=== PATIENT | male | born 1980 | race Caucasian/White ===

== ENCOUNTER 2017-10-10 13:40 | Emergency (ER) | payer BC ==
[2017-10-10 14:00] VITALS: BP 128/72; PULSE 50; TEMP 97.9; BMI 28.3
[2017-10-10] MEDS ORDERED: FLUORESCEIN NA 1 EA STRIP ONE (15:52)
--- NOTE | 2017-10-10 16:06 | PDOC ---
History of Present Illness - General Chief Complaint: Eye Problem Stated Complaint: EYE PROBLEM Time Seen by Provider: 10/10/17 15:43 History Source: Patient Exam Limitations: No Limitations - History of Present Illness Initial Comments: CHIEF COMPLAINT: 36 y/o afebrile male with PMH myopia c/o left eye irritation and pain after being hit in the eye with garbage. HISTORY OF PRESENT ILLNESS: The patient states that dust flew at his face today. He closed his eyes but something hit him in the left eye with it closed and he now has some pain in his left eye and blurry vision. He states he immediately started rubbing his left eye after the incident and now it's all red. He denies itching or burning to left eye. He does wear glasses but doesn' t have them with him so he admits his vision in both eyes is currently blurry. Vital signs on arrival are within normal limits. REVIEW OF SYSTEMS: GENERAL/CONSTITUTIONAL: No fever/chills. No weakness. No weight change. HEAD, EYES, EARS, NOSE AND THROAT: +left eye pain and blurry vision. SKIN: No rash or easy bruising. NEUROLOGIC: No headache, vertigo, loss of consciousness, or loss of sensation. PHYSICAL EXAM: VITAL_SIGNS: within normal limits GENERAL_APPEARANCE: alert, cooperative, no obvious discomfort. HEENT: Left conjunctiva and sclera injected. PERRLA. NO pain with EOMs. Fluorescein exam reveals no corneal abrasions or ulcerations. Patient could not read snellen chart with either eye because he does not have his glasses. No orbital swelling or crepitus. NEURO: motor intact and sensory intact in injured extremity. EXTREMITIES: good pulse in injured extremity, affected area on extremity has mild erythema, mild swelling, mild tenderness and no abrasions\\lacerations. SKIN: warm, dry, good color. Past History - Past Medical History Allergies/Adverse Reactions: Allergies Allergy/AdvReac Type Severity Reaction Status Date / Time No Known Allergies Allergy Verified 10/10/17 14:00 Home Medications: Ambulatory Orders Erythromycin 0.5% Eye Ointment [Erythromycin 0.5% Eye Ointment -] 1 applic OS TID #1 tube 10/10/17 COPD: No Other medical history: DENIES MEDICAL HX - Suicide/Smoking/Psychosocial Hx Smoking History: Never smoked Hx Alcohol Use: No Drug/Substance Use Hx: No *Physical Exam - Vital Signs Last Vital Signs Temp Pulse Resp BP Pulse Ox 97.9 F 50 L 16 128/72 99 10/10/17 13:57 10/10/17 13:57 10/10/17 13:57 10/10/17 13:57 10/10/17 13:57 Medical Decision Making - Medical Decision Making A/P: 36 y/o male with left eye irritation after "garbage" hitting his face. Will d/c with rx for erythromycin ointment. Suggested he f/u with [facility] referral tomorrow if no improvement in symptoms. The patient verbalizes understanding of all instructions, has no further questions and is awaiting discharge. *DC/Admit/Observation/Transfer Diagnosis at time of Disposition: Irritation of left eye - Discharge Dispostion Disposition: HOME Condition at time of disposition: Good - Referrals Referrals: German Butt MD [Staff Physician] - Call tomorrow - Patient Instructions Printed Discharge Instructions: DI for Eye Pain, How to Use Eye Ointments and Gels Additional Instructions: Discharge Instructions: -An ointment has been sent to your pharmacy for your eye -Please call Dr. Butt tomorrow if you have no improvement in symptoms -Return to the ER with any worsening or concerning symptoms - Post Discharge Activity Forms/Work/School Notes: Back to Work
== END 2017-10-10 16:10 | disposition home or self-care (01) ==
LOC: JERFT 13:40
DX: H57.12 Ocular pain, left eye (principal); W22.8XXA Striking against or struck by other objects, initial encounter; Y93.89 Activity, other specified; Y92.89 Other specified places as the place of occurrence of the external cause; Y99.8 Other external cause status
CPT/HCPCS: 99281-25